=== PATIENT | male | born 1990 | race African-American/Black ===

== ENCOUNTER 2018-10-24 23:33 | Emergency (ER) | payer SELFPAY ==
[~2018-10-24 23:33] MED LIST: Sodium Chloride 0.9% 1,000 ML BAG ONE
[2018-10-24] MEDS ORDERED: Lorazepam 2 MG/ML VIAL ONE (23:58)
== END 2018-10-25 01:00 | disposition home or self-care (01) ==
LOC: MADERS 23:33
DX: T45.0X1A Poisoning by antiallergic and antiemetic drugs, accidental (unintentional), initial encounter (principal); F41.9 Anxiety disorder, unspecified; Z87.891 Personal history of nicotine dependence
CPT/HCPCS: 93005; 96361; 96374; J2060; J7050